=== PATIENT | male | born 1965 ===

== ENCOUNTER 2020-04-14 13:45 | Inpatient (IN) ==
[2020-04-14] MEDS ORDERED: ACETAMINOPHEN 325 MG TABLET PO PRN (14:39)
[2020-04-14] MEDS ORDERED: AZITHROMYCIN INJ 500 MG in SODIUM CHLORIDE 0.9% 250 ML IV ONE (14:39)
[2020-04-14 14:43] LABS: Basophils % 0.2 % (0.0-0.8); Hematocrit 37.3 VOL% (42.0-52.0); Hemoglobin 13.3 GM/DL (14.0-18.0); Immature Granulocytes % 1.7 %; Immature Granulocytes Absolute 0.29 #; Lymphocytes # 1.3 10*3/uL (1.4-4.0); Lymphocytes % 7.3 % (21.2-54.2); Mean Corpuscular HGB Conc 35.7 GM/DL (32-36); Mean Corpuscular Volume 79.2 FL (87-102); Mean Platelet Volume 9.8 FL (9.6-12.0); Monocytes % 5.2 % (1.7-12.7); Neutrophils % 85.6 % (38.7-73.9); Platelet Count 292 T/CUMM (130-400); Red Blood Count 4.71 MC/CUMM (3.8-5.5); Red Cell Distribution Width 13.2 % (9.3-17.3); White Blood Count 17.2 T/CUMM (4-12)
[2020-04-14 14:52] LABS: ABG Base Excess -22.5 MMOL/L (-2.5-2.5); ABG HCO3 8.9 MMOL/L (20-26); ABG Oxygen Saturation 94.5 % (95-100); ABG PCO2 47.9 MM HG (35-48); ABG TCO2 10.3 MMOL/L (23-27)
[2020-04-14 14:53] LABS: Allen Test Positive; Pt O2 Delivery Device Ventilator
[2020-04-14 15:02] LABS: INR 1.1; PT Patient Result 12.2 SECS (9.8-11.9)
[2020-04-14 15:08] LABS: Bilirubin,Total 0.4 MG/DL (0.2-1.0); Calcium 6.1 MG/DL (8.5-10.1); Osmolality,Calculated 298.1 MOS/KG (273-304); Total Protein 7.8 G/DL (6.4-8.3)
[2020-04-14] MEDS ORDERED: SODIUM BICARBONATE 50 MEQ/50 ML VIAL IV ONE (15:09)
[2020-04-14 15:24] LABS: Ferritin 1787.2 ng/ml (26-388)
[2020-04-14] MEDS: SODIUM BICARB INJ 150 MEQ in DEXTROSE 5% 850 ML IV SCH (16:13)
[2020-04-14] MEDS ORDERED: MIDAZOLAM 100 MG in SODIUM CHLORIDE 0.9% 80 ML IV SCH (16:30)
[2020-04-14 16:36] LABS: ABG Base Excess -17.8 MMOL/L (-2.5-2.5); ABG HCO3 11.3 MMOL/L (20-26); ABG PCO2 52.6 MM HG (35-48); ABG TCO2 13.1 MMOL/L (23-27)
[2020-04-14 16:44] LABS: ABG PH 7.022 (7.35-7.45)
[2020-04-14] MEDS ORDERED: SODIUM CHLORIDE 0.9% 1,000 ML IV STA (16:48)
[2020-04-14] MEDS: MIDAZOLAM 100 MG in SODIUM CHLORIDE 0.9% 80 ML IV PRN (16:58)
[2020-04-14] MEDS: ENOXAPARIN 60 MG/0.6 ML SYRINGE SUBCUT SCH (18:20)
[2020-04-14 18:23] LABS: ABG Base Excess -19.1 MMOL/L (-2.5-2.5); ABG HCO3 10.4 MMOL/L (20-26); ABG Oxygen Saturation 95.9 % (95-100); ABG PCO2 37.6 MM HG (35-48); ABG TCO2 10.3 MMOL/L (23-27)
[2020-04-14 18:31] LABS: ABG PH 7.061 (7.35-7.45)
[2020-04-14] MEDS: ASCORBIC ACID 500 MG TABLET PO SCH (20:38)
[2020-04-14] MEDS: FAMOTIDINE 20 MG TABLET PO SCH (20:38)
[2020-04-15] MEDS: fentaNYL INJ 1,250 MCG in SODIUM CHLORIDE 0.9% 225 ML IV PRN ×3 (01:30→18:52)
[2020-04-15] MEDS: SODIUM BICARB INJ 150 MEQ in DEXTROSE 5% 850 ML IV SCH ×2 (01:50→12:26)
[2020-04-15 04:09] LABS: ABG Base Excess -12.9 MMOL/L (-2.5-2.5); ABG HCO3 14.6 MMOL/L (20-26); ABG Oxygen Saturation 88.4 % (95-100); ABG PCO2 39.6 MM HG (35-48); ABG PO2 63.7 MM HG (80-95); ABG TCO2 15.8 MMOL/L (23-27)
[2020-04-15 04:28] LABS: ABG PH 7.184 (7.35-7.45)
[2020-04-15 04:35] LABS: Basophils % 0.1 % (0.0-0.8); Hematocrit 30.2 VOL% (42.0-52.0); Immature Granulocytes Absolute 0.12 #; Lymphocytes # 0.7 10*3/uL (1.4-4.0); Lymphocytes % 5.7 % (21.2-54.2); Mean Corpuscular HGB Conc 36.4 GM/DL (32-36); Mean Corpuscular Volume 77.8 FL (87-102); Mean Platelet Volume 10.2 FL (9.6-12.0); Monocytes % 3.6 % (1.7-12.7); NRBC # 0.02 10*3/uL; Neutrophils % 89.6 % (38.7-73.9); Platelet Count 194 T/CUMM (130-400); Red Blood Count 3.88 MC/CUMM (3.8-5.5); Red Cell Distribution Width 13.3 % (9.3-17.3); White Blood Count 11.5 T/CUMM (4-12)
[2020-04-15 05:05] LABS: Ferritin 2164.4 ng/ml (26-388); Osmolality,Calculated 314.2 MOS/KG (273-304)
[2020-04-15] MEDS ORDERED: CALCIUM GLUCONATE 1,000 MG in SODIUM CHLORIDE 0.9% 100 ML IV ONE (05:23)
[2020-04-15] MEDS ORDERED: CALCIUM GLUCONATE 1,000 MG/10 ML VIAL IV ONE (05:26)
[2020-04-15 05:54] LABS: Sedimentation Rate-Westergren 107 MM/HR (0-20)
[2020-04-15] MEDS ORDERED: DEXAMETHASONE 4 MG/1 ML VIAL IV SCH (09:00)
[2020-04-15] MEDS: CHOLECALCIFEROL 1,000 UNIT TABLET PO SCH (09:05)
[2020-04-15] MEDS: ZINC GLUCONATE 50 MG TABLET PO SCH (09:05)
[2020-04-15] MEDS: AZITHROMYCIN 250 MG TABLET PO SCH (09:05)
[2020-04-15] MEDS: ENOXAPARIN 60 MG/0.6 ML SYRINGE SUBCUT SCH ×2 (09:05→18:46)
[2020-04-15] MEDS: ASCORBIC ACID 500 MG TABLET PO SCH ×2 (09:05→21:37)
[2020-04-15] MEDS: CETIRIZINE 10 MG TABLET PO SCH (09:05)
[2020-04-15] MEDS: FAMOTIDINE 20 MG TABLET PO SCH ×2 (09:05→21:37)
[2020-04-15] MEDS: MIDAZOLAM 100 MG in SODIUM CHLORIDE 0.9% 80 ML IV PRN ×2 (13:07→22:00)
[2020-04-15] MEDS ORDERED: SODIUM CHLORIDE 0.9% 1,000 ML IV STA (15:05)
[2020-04-15] MEDS ORDERED: PHENYLEPHRINE DRIP 40 MG/250 ML PREMIX IV ONE (15:07)
[2020-04-15] MEDS: PHENYLEPHRINE DRIP 40 MG/250 ML PREMIX IV PRN ×2 (15:10→18:52)
[2020-04-15] MEDS: DEXAMETHASONE 4 MG/1 ML VIAL IV SCH ×2 (16:15→21:38)
[2020-04-15] MEDS ORDERED: SODIUM CHLORIDE 0.9% 1,000 ML IV ONE (18:18)
[2020-04-15] MEDS ORDERED: NOREPINEPHRINE 4 MG/4 ML VIAL IV ONE ×2 (18:20→18:35)
[2020-04-15] MEDS ORDERED: INSULIN REGULAR 100 UNIT/ML SUBCUT ONE (20:30)
[2020-04-15] MEDS ORDERED: ROCURONIUM 500 MG in SODIUM CHLORIDE 0.9% 500 ML IV PRN (21:27)
[2020-04-16] MEDS ORDERED: INSULIN REGULAR 100 UNIT/ML SUBCUT SCH
[2020-04-16] MEDS: PHENYLEPHRINE DRIP 40 MG/250 ML PREMIX IV PRN (00:51)
[2020-04-16] MEDS: SODIUM BICARB INJ 150 MEQ in DEXTROSE 5% 850 ML IV SCH (00:52)
[2020-04-16] MEDS: DEXAMETHASONE 4 MG/1 ML VIAL IV SCH ×4 (02:44→21:49)
[2020-04-16 04:35] LABS: ABG Base Excess -9.9 MMOL/L (-2.5-2.5); ABG HCO3 16.4 MMOL/L (20-26); ABG PCO2 33.3 MM HG (35-48); ABG PH 7.286 (7.35-7.45); ABG PO2 59.3 MM HG (80-95); ABG TCO2 14.6 MMOL/L (23-27)
[2020-04-16 04:50] LABS: Basophils % 0.1 % (0.0-0.8); Hematocrit 28.8 VOL% (42.0-52.0); Hemoglobin 10.5 GM/DL (14.0-18.0); Immature Granulocytes % 1.2 %; Immature Granulocytes Absolute 0.18 #; Lymphocytes # 0.4 10*3/uL (1.4-4.0); Lymphocytes % 2.5 % (21.2-54.2); Mean Corpuscular HGB Conc 36.5 GM/DL (32-36); Mean Platelet Volume 10.2 FL (9.6-12.0); Monocytes % 2.8 % (1.7-12.7); Neutrophils % 93.4 % (38.7-73.9); Platelet Count 274 T/CUMM (130-400); Red Blood Count 3.69 MC/CUMM (3.8-5.5); Red Cell Distribution Width 13.5 % (9.3-17.3); White Blood Count 14.7 T/CUMM (4-12)
[2020-04-16 05:44] LABS: Blood Urea Nitrogen 126 MG/DL (7-18); Estimated Glom Filtration Rate 5 ML/MIN; Glucose 318 MG/DL (74-106); Osmolality,Calculated 314.7 MOS/KG (273-304)
[2020-04-16] MEDS: INSULIN REGULAR 100 UNIT/ML SUBCUT SCH ×5 (06:00→21:33)
[2020-04-16 06:07] LABS: Calcium < 5.0 MG/DL (8.5-10.1)
[2020-04-16] MEDS: ENOXAPARIN 60 MG/0.6 ML SYRINGE SUBCUT SCH (06:17)
[2020-04-16 07:19] LABS: Band Neutrophils 2 % (0-10); Burr Cells Slight; Lymphocytes 3 % (20-55); Polychromasia Few; Segmented Neutrophils 95 % (50-85); Total Cells Counted 100
[2020-04-16 07:20] LABS: Platelet Estimate Adequate
[2020-04-16] MEDS: fentaNYL INJ 1,250 MCG in SODIUM CHLORIDE 0.9% 225 ML IV PRN ×2 (07:31→20:30)
[2020-04-16] MEDS: CHOLECALCIFEROL 1,000 UNIT TABLET PO SCH (08:18)
[2020-04-16] MEDS: FAMOTIDINE 20 MG TABLET PO SCH ×2 (08:18→21:49)
[2020-04-16] MEDS: CETIRIZINE 10 MG TABLET PO SCH (08:18)
[2020-04-16] MEDS: ZINC GLUCONATE 50 MG TABLET PO SCH (08:18)
[2020-04-16] MEDS: ASCORBIC ACID 500 MG TABLET PO SCH ×2 (08:18→21:49)
[2020-04-16] MEDS: MIDAZOLAM 100 MG in SODIUM CHLORIDE 0.9% 80 ML IV PRN ×2 (08:19→18:41)
[2020-04-16] MEDS: AZITHROMYCIN 250 MG TABLET PO SCH (08:19)
[2020-04-16 08:47] LABS: Alanine Aminotransferase 15 U/L (16-61); Albumin 1.4 G/DL (3.4-5.0); Alkaline Phosphatase 91 U/L (45-117); Aspartate Amino Transferase 75 U/L (0-37); Bilirubin,Total < 0.39 MG/DL (0.2-1.0); Blood Urea Nitrogen 126 MG/DL (7-18); Estimated Glom Filtration Rate 5 ML/MIN; Glucose 291 MG/DL (74-106); Osmolality,Calculated 313.7 MOS/KG (273-304)
[2020-04-16 08:51] LABS: Calcium < 5.0 MG/DL (8.5-10.1)
[2020-04-16] MEDS ORDERED: SODIUM BICARBONATE 50 MEQ/50 ML VIAL IV ONE (10:24)
[2020-04-16] MEDS ORDERED: CISATRACURIUM 200 MG in SODIUM CHLORIDE 0.9% 180 ML IV PRN (11:31)
[2020-04-16] MEDS ORDERED: CALCIUM GLUCONATE 2,000 MG in SODIUM CHLORIDE 0.9% 100 ML IV ONE (14:05)
[2020-04-16] MEDS: SODIUM BICARB INJ 100 MEQ in STERILE WATER INJ 1,000 ML IV SCH (15:39)
[2020-04-16] MEDS: HEPARIN DRIP 25,000 UNITS/500 ML PREMIX IV SCH (16:05)
[2020-04-16] MEDS: cefTRIAXone 1,000 MG in SYRINGE 1 EACH IV SCH (16:05)
[2020-04-17] MEDS: INSULIN REGULAR 100 UNIT/ML SUBCUT SCH ×6 (01:12→20:53)
[2020-04-17] MEDS: DEXAMETHASONE 4 MG/1 ML VIAL IV SCH ×4 (03:30→20:56)
[2020-04-17 04:54] LABS: ABG Base Excess -5.3 MMOL/L (-2.5-2.5); ABG Oxygen Saturation 94.1 % (95-100); ABG PCO2 35.9 MM HG (35-48); ABG PH 7.348 (7.35-7.45); ABG PO2 79.5 MM HG (80-95); ABG TCO2 18.1 MMOL/L (23-27)
[2020-04-17] MEDS: MIDAZOLAM 100 MG in SODIUM CHLORIDE 0.9% 80 ML IV PRN ×2 (05:08→21:45)
[2020-04-17] MEDS: SODIUM BICARB INJ 100 MEQ in STERILE WATER INJ 1,000 ML IV SCH ×2 (05:10→08:05)
[2020-04-17 05:14] LABS: Basophils % 0.1 % (0.0-0.8); Hematocrit 24.8 VOL% (42.0-52.0); Hemoglobin 8.8 GM/DL (14.0-18.0); Immature Granulocytes % 1.4 %; Immature Granulocytes Absolute 0.16 #; Lymphocytes # 0.4 10*3/uL (1.4-4.0); Lymphocytes % 3.8 % (21.2-54.2); Mean Corpuscular HGB Conc 35.5 GM/DL (32-36); Mean Platelet Volume 10.4 FL (9.6-12.0); Monocytes % 3.6 % (1.7-12.7); NRBC # 0.02 10*3/uL; Neutrophils % 91.1 % (38.7-73.9); Platelet Count 211 T/CUMM (130-400); Red Cell Distribution Width 13.9 % (9.3-17.3)
[2020-04-17 05:43] LABS: Band Neutrophils 2 % (0-10); Hypochromasia 1+; Lymphocytes 2 % (20-55); Segmented Neutrophils 92 % (50-85); Total Cells Counted 100
[2020-04-17 05:44] LABS: Microcytosis 1+; Platelet Estimate Normal
[2020-04-17 07:24] LABS: Alanine Aminotransferase 12 U/L (16-61); Albumin 1.3 G/DL (3.4-5.0); Alkaline Phosphatase 78 U/L (45-117); Aspartate Amino Transferase 54 U/L (0-37); Bilirubin,Total < 0.39 MG/DL (0.2-1.0); Blood Urea Nitrogen 140 MG/DL (7-18); Estimated Glom Filtration Rate 5 ML/MIN; Ferritin 1436.1 ng/ml (26-388); Glucose 148 MG/DL (74-106); Osmolality,Calculated 314.4 MOS/KG (273-304); Total Protein 4.9 G/DL (6.4-8.3)
[2020-04-17 07:26] LABS: Calcium < 5.0 MG/DL (8.5-10.1)
[2020-04-17] MEDS ORDERED: SODIUM CHLORIDE 0.9% 1,000 ML IV PRN (08:09)
[2020-04-17] MEDS: ZINC GLUCONATE 50 MG TABLET PO SCH (09:49)
[2020-04-17] MEDS: CHOLECALCIFEROL 1,000 UNIT TABLET PO SCH (09:49)
[2020-04-17] MEDS: ASCORBIC ACID 500 MG TABLET PO SCH ×2 (09:49→20:56)
[2020-04-17] MEDS: FAMOTIDINE 20 MG TABLET PO SCH (09:49)
[2020-04-17] MEDS: AZITHROMYCIN 250 MG TABLET PO SCH (09:49)
[2020-04-17] MEDS: CETIRIZINE 10 MG TABLET PO SCH (09:49)
[2020-04-17] MEDS: fentaNYL INJ 1,250 MCG in SODIUM CHLORIDE 0.9% 225 ML IV PRN ×2 (09:50→22:30)
[2020-04-17] MEDS ORDERED: CALCIUM GLUCONATE 2,000 MG in SODIUM CHLORIDE 0.9% 100 ML IV ONE (10:00)
[2020-04-17] MEDS: HEPARIN DRIP 25,000 UNITS/500 ML PREMIX IV SCH (11:18)
[2020-04-17 11:43] LABS: Hepatitis B Core IgM Quant 0.26 Index; Hepatitis B Surface Ag Quant 0.83 Index; Hepatitis B Surface Ag Result Negative (Negative); Hepatitis C Virus Ab Quant < 0.02 Index; Hepatitis C Virus Ab Result Negative (Negative)
[2020-04-17] MEDS ORDERED: HEPARIN 10,000 UNIT/10 ML VIAL IV SCH (13:30)
[2020-04-17] MEDS: cefTRIAXone 1,000 MG in SYRINGE 1 EACH IV SCH (16:00)
[2020-04-17] MEDS ORDERED: DEXTROSE 50% 25 GM/50 ML VIAL IV PRN (17:10)
[2020-04-17] MEDS ORDERED: GLUCAGON 1 MG VIAL IM PRN (17:10)
[2020-04-18] MEDS: INSULIN REGULAR 100 UNIT/ML SUBCUT SCH ×7 (00:40→23:34)
[2020-04-18] MEDS: SODIUM BICARB INJ 100 MEQ in STERILE WATER INJ 1,000 ML IV SCH ×3 (02:00→21:38)
[2020-04-18] MEDS: DEXAMETHASONE 4 MG/1 ML VIAL IV SCH ×4 (03:22→23:32)
[2020-04-18 04:55] LABS: ABG Base Excess -4.8 MMOL/L (-2.5-2.5); ABG HCO3 20.3 MMOL/L (20-26); ABG Oxygen Saturation 90.9 % (95-100); ABG PH 7.348 (7.35-7.45)
[2020-04-18 04:59] LABS: Basophils % 0.2 % (0.0-0.8); Eosinophils # 0.1 10*3/uL (0.0-0.87); Eosinophils % 0.5 % (0.00-10.9); Hematocrit 24.1 VOL% (42.0-52.0); Hemoglobin 8.4 GM/DL (14.0-18.0); Immature Granulocytes % 6.6 %; Lymphocytes # 0.5 10*3/uL (1.4-4.0); Lymphocytes % 2.8 % (21.2-54.2); Mean Corpuscular HGB Conc 34.9 GM/DL (32-36); Mean Corpuscular Volume 81.1 FL (87-102); Mean Platelet Volume 10.2 FL (9.6-12.0); Monocytes % 5.6 % (1.7-12.7); NRBC # 0.23 10*3/uL; Neutrophils % 84.3 % (38.7-73.9); Platelet Count 228 T/CUMM (130-400); Red Blood Count 2.97 MC/CUMM (3.8-5.5); Red Cell Distribution Width 13.7 % (9.3-17.3); White Blood Count 16.7 T/CUMM (4-12)
[2020-04-18 05:22] LABS: Band Neutrophils 2 % (0-10); Lymphocytes 2 % (20-55); Nucleated Red Blood Cells 2 (0-5); Platelet Estimate Adequate; Segmented Neutrophils 93 % (50-85); Total Cells Counted 100
[2020-04-18 05:23] LABS: Hypochromasia 1+; Microcytosis 1+
[2020-04-18 05:53] LABS: Alanine Aminotransferase 11 U/L (16-61); Albumin 1.3 G/DL (3.4-5.0); Alkaline Phosphatase 79 U/L (45-117); Aspartate Amino Transferase 36 U/L (0-37); Blood Urea Nitrogen 128 MG/DL (7-18); Estimated Glom Filtration Rate 6 ML/MIN; Glucose 266 MG/DL (74-106); Osmolality,Calculated 311.7 MOS/KG (273-304); Total Protein 5.7 G/DL (6.4-8.3)
[2020-04-18 05:55] LABS: Calcium < 5.0 MG/DL (8.5-10.1)
[2020-04-18 06:05] VITALS: BP 114/44
[2020-04-18] MEDS ORDERED: CALCIUM GLUCONATE 2,000 MG in SODIUM CHLORIDE 0.9% 100 ML IV ONE ×2 (07:00→10:00)
[2020-04-18] MEDS: MIDAZOLAM 100 MG in SODIUM CHLORIDE 0.9% 80 ML IV PRN ×2 (07:45→19:07)
[2020-04-18] MEDS: AZITHROMYCIN 250 MG TABLET PO SCH (08:24)
[2020-04-18] MEDS: ZINC GLUCONATE 50 MG TABLET PO SCH (08:24)
[2020-04-18] MEDS: CHOLECALCIFEROL 1,000 UNIT TABLET PO SCH (08:24)
[2020-04-18] MEDS: CETIRIZINE 10 MG TABLET PO SCH (08:24)
[2020-04-18] MEDS: ASCORBIC ACID 500 MG TABLET PO SCH ×2 (08:24→20:17)
[2020-04-18] MEDS: CALCIUM ACETATE 667 MG CAPSULE PO SCH ×3 (08:24→18:02)
[2020-04-18] MEDS: FAMOTIDINE 20 MG TABLET PO SCH (08:24)
[2020-04-18] MEDS: HEPARIN DRIP 25,000 UNITS/500 ML PREMIX IV SCH ×2 (08:30→17:27)
[2020-04-18] MEDS ORDERED: INFLUENZA VIRUS VACCINE 0.5 ML SYRINGE IM ONE (09:00)
[2020-04-18] MEDS: fentaNYL INJ 1,250 MCG in SODIUM CHLORIDE 0.9% 225 ML IV PRN (10:33)
[2020-04-18] MEDS: ROCURONIUM 500 MG in SODIUM CHLORIDE 0.9% 500 ML IV PRN ×2 (10:45→21:38)
[2020-04-18] MEDS: cefTRIAXone 1,000 MG in SYRINGE 1 EACH IV SCH (17:58)
[2020-04-18] MEDS ORDERED: guaiFENesin 200 MG/10 ML UDCUP PO PRN (19:05)
[2020-04-18] MEDS: fentaNYL INJ 2,500 MCG in SODIUM CHLORIDE 0.9% 450 ML IV PRN (19:11)
[2020-04-18] MEDS: ATORVASTATIN 40 MG TABLET PO SCH (20:17)
[2020-04-18] MEDS: CALCIUM (CARBONATE) 600 MG TABLET PO SCH (20:17)
[2020-04-18] MEDS: hydrALAZINE 25 MG TABLET PO SCH (20:17)
[2020-04-18] MEDS: METOPROLOL TARTRATE 25 MG TABLET PO SCH (20:17)
[2020-04-18] MEDS ORDERED: INSULIN GLARGINE 100 UNIT/ML SUBCUT SCH (21:00)
[2020-04-19] MEDS: DEXAMETHASONE 4 MG/1 ML VIAL IV SCH ×3 (04:46→17:32)
[2020-04-19] MEDS: INSULIN REGULAR 100 UNIT/ML SUBCUT SCH ×5 (04:46→20:02)
[2020-04-19 04:47] LABS: Basophils % 0.3 % (0.0-0.8); Eosinophils # 0.1 10*3/uL (0.0-0.87); Eosinophils % 0.7 % (0.00-10.9); Hemoglobin 7.8 GM/DL (14.0-18.0); Immature Granulocytes % 8.7 %; Immature Granulocytes Absolute 1.23 #; Lymphocytes # 0.4 10*3/uL (1.4-4.0); Lymphocytes % 2.9 % (21.2-54.2); Mean Corpuscular HGB Conc 33.9 GM/DL (32-36); Mean Corpuscular Volume 82.1 FL (87-102); Monocytes % 5.6 % (1.7-12.7); NRBC # 0.18 10*3/uL; Neutrophils % 81.8 % (38.7-73.9); Platelet Count 216 T/CUMM (130-400); Red Cell Distribution Width 13.4 % (9.3-17.3); White Blood Count 14.2 T/CUMM (4-12)
[2020-04-19 04:48] LABS: ABG Base Excess -4.3 MMOL/L (-2.5-2.5); ABG HCO3 20.9 MMOL/L (20-26); ABG PCO2 43.8 MM HG (35-48); ABG PH 7.308 (7.35-7.45); ABG TCO2 19.9 MMOL/L (23-27)
[2020-04-19 05:11] LABS: Band Neutrophils 1 % (0-10); Lymphocytes 7 % (20-55); Nucleated Red Blood Cells 4 (0-5); Platelet Estimate Adequate; Segmented Neutrophils 87 % (50-85); Total Cells Counted 100
[2020-04-19 05:12] LABS: Hypochromasia 2+; Microcytosis 1+; Osmolality,Calculated 321.7 MOS/KG (273-304)
[2020-04-19 05:23] LABS: Calcium 5.2 MG/DL (8.5-10.1)
[2020-04-19] MEDS: MIDAZOLAM 100 MG in SODIUM CHLORIDE 0.9% 80 ML IV PRN ×2 (05:34→15:47)
[2020-04-19] MEDS: HEPARIN DRIP 25,000 UNITS/500 ML PREMIX IV SCH ×2 (06:43→14:45)
[2020-04-19] MEDS: ASCORBIC ACID 500 MG TABLET PO SCH ×2 (08:52→20:03)
[2020-04-19] MEDS: ZINC GLUCONATE 50 MG TABLET PO SCH (08:52)
[2020-04-19] MEDS: hydrALAZINE 25 MG TABLET PO SCH ×2 (08:52→20:02)
[2020-04-19] MEDS: ASPIRIN EC 81 MG TABLET PO SCH (08:52)
[2020-04-19] MEDS: FAMOTIDINE 20 MG TABLET PO SCH (08:53)
[2020-04-19] MEDS: CALCIUM (CARBONATE) 600 MG TABLET PO SCH ×2 (08:53→20:22)
[2020-04-19] MEDS: CETIRIZINE 10 MG TABLET PO SCH (08:53)
[2020-04-19] MEDS: METOPROLOL TARTRATE 25 MG TABLET PO SCH ×2 (08:53→20:03)
[2020-04-19] MEDS: CHOLECALCIFEROL 1,000 UNIT TABLET PO SCH (08:53)
[2020-04-19] MEDS: amLODIPine 10 MG TABLET PO SCH (08:53)
[2020-04-19] MEDS: CALCIUM ACETATE 667 MG CAPSULE PO SCH ×3 (08:55→17:31)
[2020-04-19] MEDS: ROCURONIUM 500 MG in SODIUM CHLORIDE 0.9% 500 ML IV PRN ×2 (09:38→22:01)
[2020-04-19] MEDS ORDERED: INSULIN GLARGINE 100 UNIT/ML SUBCUT SCH (09:59)
[2020-04-19] MEDS ORDERED: ERGOCALCIFEROL 50,000 UNIT CAPSULE PO SCH (10:00)
[2020-04-19] MEDS ORDERED: CALCIUM GLUCONATE 1,000 MG in SODIUM CHLORIDE 0.9% 100 ML IV ONE (10:30)
[2020-04-19] MEDS: fentaNYL INJ 2,500 MCG in SODIUM CHLORIDE 0.9% 450 ML IV PRN (12:54)
[2020-04-19] MEDS: cefTRIAXone 1,000 MG in SYRINGE 1 EACH IV SCH (15:23)
[2020-04-19] MEDS: SODIUM BICARB INJ 100 MEQ in STERILE WATER INJ 1,000 ML IV SCH (15:46)
[2020-04-19] MEDS: ATORVASTATIN 40 MG TABLET PO SCH (20:03)
[2020-04-19] MEDS ORDERED: LOSARTAN 50 MG TABLET PO ONE (23:40)
[2020-04-20] MEDS: INSULIN REGULAR 100 UNIT/ML SUBCUT SCH ×7 (00:27→23:49)
[2020-04-20] MEDS: DEXAMETHASONE 4 MG/1 ML VIAL IV SCH ×5 (00:27→23:49)
[2020-04-20] MEDS: MIDAZOLAM 100 MG in SODIUM CHLORIDE 0.9% 80 ML IV PRN ×2 (03:29→14:21)
[2020-04-20] MEDS: SODIUM BICARB INJ 100 MEQ in STERILE WATER INJ 1,000 ML IV SCH ×2 (03:30→12:10)
[2020-04-20 04:33] LABS: ABG Base Excess -0.5 MMOL/L (-2.5-2.5); ABG HCO3 24.7 MMOL/L (20-26); ABG Oxygen Saturation 88.1 % (95-100); ABG PCO2 43.1 MM HG (35-48); ABG PH 7.376 (7.35-7.45); ABG PO2 61.3 MM HG (80-95)
[2020-04-20 04:46] LABS: Basophils % 0.2 % (0.0-0.8); Hematocrit 25.5 VOL% (42.0-52.0); Hemoglobin 8.5 GM/DL (14.0-18.0); Immature Granulocytes % 11.1 %; Immature Granulocytes Absolute 1.81 #; Lymphocytes # 0.3 10*3/uL (1.4-4.0); Lymphocytes % 2.1 % (21.2-54.2); Mean Corpuscular HGB Conc 33.3 GM/DL (32-36); Mean Corpuscular Volume 84.4 FL (87-102); Mean Platelet Volume 9.9 FL (9.6-12.0); Monocytes % 6.6 % (1.7-12.7); NRBC # 0.24 10*3/uL; Platelet Count 206 T/CUMM (130-400); Red Blood Count 3.02 MC/CUMM (3.8-5.5); Red Cell Distribution Width 13.5 % (9.3-17.3); White Blood Count 16.4 T/CUMM (4-12)
[2020-04-20] MEDS: HEPARIN DRIP 25,000 UNITS/500 ML PREMIX IV SCH (05:00)
[2020-04-20 05:14] LABS: Band Neutrophils 4 % (0-10); Hypochromasia 1+; Lymphocytes 2 % (20-55); Microcytosis 1+; Nucleated Red Blood Cells 2 (0-5); Platelet Estimate Adequate; Segmented Neutrophils 88 % (50-85); Total Cells Counted 100
[2020-04-20 05:32] LABS: Osmolality,Calculated 308.4 MOS/KG (273-304)
[2020-04-20] MEDS: fentaNYL INJ 2,500 MCG in SODIUM CHLORIDE 0.9% 450 ML IV PRN ×2 (06:16→23:50)
[2020-04-20] MEDS: ASCORBIC ACID 500 MG TABLET PO SCH ×2 (08:38→20:18)
[2020-04-20] MEDS: ZINC GLUCONATE 50 MG TABLET PO SCH (08:38)
[2020-04-20] MEDS: CALCIUM (CARBONATE) 600 MG TABLET PO SCH ×2 (08:38→20:18)
[2020-04-20] MEDS: CALCIUM ACETATE 667 MG CAPSULE PO SCH ×3 (08:38→18:14)
[2020-04-20] MEDS: LOSARTAN 50 MG TABLET PO SCH (08:39)
[2020-04-20] MEDS: ASPIRIN EC 81 MG TABLET PO SCH (08:39)
[2020-04-20] MEDS: METOPROLOL TARTRATE 25 MG TABLET PO SCH ×2 (08:39→20:18)
[2020-04-20] MEDS: CETIRIZINE 10 MG TABLET PO SCH (08:39)
[2020-04-20] MEDS: amLODIPine 10 MG TABLET PO SCH (08:39)
[2020-04-20] MEDS: hydrALAZINE 25 MG TABLET PO SCH ×2 (08:39→20:18)
[2020-04-20] MEDS: FAMOTIDINE 20 MG TABLET PO SCH (08:39)
[2020-04-20] MEDS ORDERED: FUROSEMIDE 40 MG/4 ML VIAL IV ONE (09:36)
[2020-04-20] MEDS: ROCURONIUM 500 MG in SODIUM CHLORIDE 0.9% 500 ML IV PRN (14:10)
[2020-04-20] MEDS: cefTRIAXone 1,000 MG in SYRINGE 1 EACH IV SCH (15:48)
[2020-04-20] MEDS: NOREPINEPHRINE 8 MG in SODIUM CHLORIDE 0.9% 242 ML IV PRN (16:55)
[2020-04-20] MEDS: METOCLOPRAMIDE 10 MG/2 ML VIAL IV SCH ×2 (18:15→23:49)
[2020-04-20] MEDS: SODIUM BICARB INJ 50 MEQ in STERILE WATER INJ 1,000 ML IV SCH (20:17)
[2020-04-20] MEDS: POLYETHYLENE GLYCOL POWDER 17 GM PACK PO SCH (20:17)
[2020-04-20] MEDS: ATORVASTATIN 40 MG TABLET PO SCH (20:18)
[2020-04-20] MEDS: INSULIN GLARGINE 100 UNIT/ML SUBCUT SCH (20:18)
[2020-04-21] MEDS: HEPARIN DRIP 25,000 UNITS/500 ML PREMIX IV SCH ×3 (00:04→22:34)
[2020-04-21] MEDS: ROCURONIUM 500 MG in SODIUM CHLORIDE 0.9% 500 ML IV PRN ×2 (00:30→16:18)
[2020-04-21] MEDS: MIDAZOLAM 100 MG in SODIUM CHLORIDE 0.9% 80 ML IV PRN ×2 (02:05→12:11)
[2020-04-21 04:37] LABS: ABG Base Excess -2.6 MMOL/L (-2.5-2.5); ABG HCO3 21.9 MMOL/L (20-26); ABG PCO2 47.8 MM HG (35-48); ABG PH 7.306 (7.35-7.45); ABG PO2 51.5 MM HG (80-95); ABG TCO2 22.2 MMOL/L (23-27)
[2020-04-21 04:42] LABS: Basophils % 0.2 % (0.0-0.8); Hematocrit 29.1 VOL% (42.0-52.0); Hemoglobin 9.4 GM/DL (14.0-18.0); Immature Granulocytes Absolute 2.24 #; Lymphocytes # 0.4 10*3/uL (1.4-4.0); Lymphocytes % 1.9 % (21.2-54.2); Mean Corpuscular HGB Conc 32.3 GM/DL (32-36); Mean Corpuscular Volume 86.9 FL (87-102); NRBC # 0.24 10*3/uL; Neutrophils % 83.9 % (38.7-73.9); Platelet Count 202 T/CUMM (130-400); Red Blood Count 3.35 MC/CUMM (3.8-5.5); Red Cell Distribution Width 13.8 % (9.3-17.3); White Blood Count 22.3 T/CUMM (4-12)
[2020-04-21 04:56] LABS: Osmolality,Calculated 305.2 MOS/KG (273-304)
[2020-04-21 05:03] LABS: Lymphocytes 5 % (20-55); Platelet Estimate Normal; Segmented Neutrophils 89 % (50-85); Total Cells Counted 100
[2020-04-21 05:04] LABS: Hypochromasia Slight
[2020-04-21 06:07] LABS: Calcium 5.8 MG/DL (8.5-10.1)
[2020-04-21] MEDS: INSULIN REGULAR 100 UNIT/ML SUBCUT SCH ×5 (06:44→20:17)
[2020-04-21] MEDS: DEXAMETHASONE 4 MG/1 ML VIAL IV SCH ×3 (06:44→18:23)
[2020-04-21] MEDS: METOCLOPRAMIDE 10 MG/2 ML VIAL IV SCH ×3 (06:44→18:23)
[2020-04-21] MEDS: ASCORBIC ACID 500 MG TABLET PO SCH ×2 (08:23→20:16)
[2020-04-21] MEDS: FAMOTIDINE 20 MG TABLET PO SCH (08:23)
[2020-04-21] MEDS: CETIRIZINE 10 MG TABLET PO SCH (08:23)
[2020-04-21] MEDS: CALCIUM ACETATE 667 MG CAPSULE PO SCH ×3 (08:23→18:22)
[2020-04-21] MEDS: CALCIUM (CARBONATE) 600 MG TABLET PO SCH ×2 (08:23→20:16)
[2020-04-21] MEDS: ZINC GLUCONATE 50 MG TABLET PO SCH (08:23)
[2020-04-21] MEDS: ASPIRIN EC 81 MG TABLET PO SCH (08:23)
[2020-04-21] MEDS ORDERED: CALCIUM GLUCONATE 1,000 MG in SODIUM CHLORIDE 0.9% 100 ML IV ONE (09:46)
[2020-04-21] MEDS: amLODIPine 10 MG TABLET PO SCH (09:49)
[2020-04-21] MEDS: METOPROLOL TARTRATE 25 MG TABLET PO SCH ×2 (09:49→20:16)
[2020-04-21] MEDS: LOSARTAN 50 MG TABLET PO SCH (09:49)
[2020-04-21] MEDS: hydrALAZINE 25 MG TABLET PO SCH ×2 (09:49→20:16)
[2020-04-21] MEDS ORDERED: LEVOFLOXACIN 750 MG TABLET PO ONE (15:00)
[2020-04-21] MEDS ORDERED: LEVOFLOXACIN 500 MG TABLET PO SCH (15:00)
[2020-04-21] MEDS: cefTRIAXone 1,000 MG in SYRINGE 1 EACH IV SCH (16:35)
[2020-04-21] MEDS: fentaNYL INJ 2,500 MCG in SODIUM CHLORIDE 0.9% 450 ML IV PRN (18:27)
[2020-04-21] MEDS: SODIUM BICARB INJ 50 MEQ in STERILE WATER INJ 1,000 ML IV SCH ×2 (19:11→22:33)
[2020-04-21] MEDS: POLYETHYLENE GLYCOL POWDER 17 GM PACK PO SCH (20:15)
[2020-04-21] MEDS: ATORVASTATIN 40 MG TABLET PO SCH (20:16)
[2020-04-21] MEDS: INSULIN GLARGINE 100 UNIT/ML SUBCUT SCH (20:16)
[2020-04-22] MEDS: INSULIN REGULAR 100 UNIT/ML SUBCUT SCH ×5 (00:26→14:25)
[2020-04-22] MEDS: METOCLOPRAMIDE 10 MG/2 ML VIAL IV SCH ×3 (00:27→13:03)
[2020-04-22] MEDS: DEXAMETHASONE 4 MG/1 ML VIAL IV SCH ×3 (00:27→13:33)
[2020-04-22] MEDS: MIDAZOLAM 100 MG in SODIUM CHLORIDE 0.9% 80 ML IV PRN ×2 (00:34→13:22)
[2020-04-22 04:53] LABS: ABG Base Excess -6.2 MMOL/L (-2.5-2.5); ABG HCO3 18.9 MMOL/L (20-26); ABG Oxygen Saturation 69.4 % (95-100); ABG PCO2 50.4 MM HG (35-48); ABG PH 7.237 (7.35-7.45); ABG PO2 46.4 MM HG (80-95)
[2020-04-22 04:56] LABS: Basophils # 0.1 10*3/uL (0.0-0.2); Basophils % 0.2 % (0.0-0.8); Eosinophils # 0.1 10*3/uL (0.0-0.87); Eosinophils % 0.4 % (0.00-10.9); Hematocrit 32.6 VOL% (42.0-52.0); Immature Granulocytes % 13.8 %; Immature Granulocytes Absolute 4.27 #; Lymphocytes # 0.7 10*3/uL (1.4-4.0); Lymphocytes % 2.4 % (21.2-54.2); Mean Corpuscular HGB Conc 33.7 GM/DL (32-36); Mean Corpuscular Volume 85.3 FL (87-102); Mean Platelet Volume 10.5 FL (9.6-12.0); Monocytes % 5.3 % (1.7-12.7); Neutrophils % 77.9 % (38.7-73.9); Platelet Count 304 T/CUMM (130-400); Red Blood Count 3.82 MC/CUMM (3.8-5.5); Red Cell Distribution Width 14.3 % (9.3-17.3)
[2020-04-22 05:11] LABS: Calcium 6.1 MG/DL (8.5-10.1); Osmolality,Calculated 316.2 MOS/KG (273-304)
[2020-04-22] MEDS: ROCURONIUM 500 MG in SODIUM CHLORIDE 0.9% 500 ML IV PRN (05:16)
[2020-04-22 05:17] LABS: Hypochromasia 1+; Microcytosis 1+; Polychromasia Slight
[2020-04-22 05:18] LABS: Platelet Estimate Normal
[2020-04-22] MEDS: NOREPINEPHRINE 8 MG in SODIUM CHLORIDE 0.9% 242 ML IV PRN (08:26)
[2020-04-22] MEDS: ASPIRIN EC 81 MG TABLET PO SCH (09:02)
[2020-04-22] MEDS: ASCORBIC ACID 500 MG TABLET PO SCH (09:02)
[2020-04-22] MEDS: FAMOTIDINE 20 MG TABLET PO SCH (09:02)
[2020-04-22] MEDS: CALCIUM ACETATE 667 MG CAPSULE PO SCH ×2 (09:03→13:08)
[2020-04-22] MEDS: CALCIUM (CARBONATE) 600 MG TABLET PO SCH (09:03)
[2020-04-22] MEDS: CETIRIZINE 10 MG TABLET PO SCH (09:03)
[2020-04-22] MEDS: ZINC GLUCONATE 50 MG TABLET PO SCH (09:03)
[2020-04-22] MEDS: amLODIPine 10 MG TABLET PO SCH (11:31)
[2020-04-22] MEDS: LOSARTAN 50 MG TABLET PO SCH (11:31)
[2020-04-22] MEDS: hydrALAZINE 25 MG TABLET PO SCH (11:31)
[2020-04-22] MEDS: METOPROLOL TARTRATE 25 MG TABLET PO SCH (11:31)
[2020-04-22] MEDS: fentaNYL INJ 2,500 MCG in SODIUM CHLORIDE 0.9% 450 ML IV PRN (12:46)
[2020-04-22] MEDS: HEPARIN DRIP 25,000 UNITS/500 ML PREMIX IV SCH (14:25)
[2020-04-22] MEDS: cefTRIAXone 1,000 MG in SYRINGE 1 EACH IV SCH (14:25)
[2020-04-23] MEDS ORDERED: LEVOFLOXACIN 500 MG TABLET PO SCH (09:00)
== END 2020-04-22 14:22 | disposition expired | DRG 207 ==
LOC: N.ED 13:45 → SUATTDRO 14:39 → N.EDINP 14:39 → N.CC 04-15 16:46
PROVIDERS: ADMIT Family Medicine; ATTEND Internal Medicine